=== PATIENT | male | born 1980 | race Caucasian/White ===

== ENCOUNTER 2022-07-07 10:23 | Outpatient (CLI) | payer OTHER | END 2022-07-07 10:24 | disposition home or self-care (01) | LOC: BURRAD 10:23 | PROVIDERS: ATTEND Family Medicine | DX: R05.8 Other specified cough (principal) | CPT/HCPCS: 71046 ==

== ENCOUNTER 2023-03-27 09:04 | Emergency (ER) | payer OTHER | END 2023-03-27 09:41 | disposition home or self-care (01) | LOC: BURERS 09:04 | DX: B37.42 Candidal balanitis (principal); N47.1 Phimosis; E11.9 Type 2 diabetes mellitus without complications; Z79.84 Long term (current) use of oral hypoglycemic drugs | CPT/HCPCS: 99283 ==